=== PATIENT | female | born 1985 | race Caucasian/White ===

== ENCOUNTER 2018-11-22 18:55 | Outpatient (CLI) | payer MEDICAID ==
[~2018-11-22] VITALS: Ht 160 cm; Wt 95.0 kg
[~2018-11-22 18:55] MED LIST: ACID1TAB7 PO; CLIN300C8 PO; OXYC1TAB7 PO
[2018-11-22 20:48] LABS: MICROSCOPIC INDICATED
[2018-11-22 21:39] LABS: AMPHETAMINE SCREEN, URINE Positive (Negative); BARBITURATE SCREEN, URINE Negative (Negative); BENZODIAZEPINE SCREEN, URINE Negative (Negative); CANNABINOID SCREEN, URINE Negative (Negative); COCAINE SCREEN, URINE Negative (Negative); METHADONE SCREEN, URINE Negative (Negative); OPIATE SCREEN, URINE Negative (Negative)
== END 2018-11-22 20:50 | disposition home or self-care (01) ==
LOC: LDOP 18:55
PROVIDERS: ATTEND Obstetrics & Gynecology
DX: O62.8 Other abnormalities of forces of labor (principal); Z3A.33 33 weeks gestation of pregnancy
CPT/HCPCS: 59025; 76805; 80307; 81001; 87086; 99201; G0463

== ENCOUNTER 2019-10-29 14:24 | Emergency (ER) | payer MEDICAID ==
[~2019-10-29] VITALS: Ht 157.5 cm; Wt 96.6 kg
[2019-10-29 14:40] VITALS: BP 155/112
--- NOTE | 2019-10-29 15:20 | NUR ---
BREAK RN: PT FULLY DRESSED WHEN I ENTERED ROOM. STATED "I DON'T WANT TO WAIT, I'LL DEAL WITH THIS ANOTHER TIME" PT REFUSED TO SIGN AMA FORM AND STATED I JUST WANT TO LEAVE. PT AMBULATORY UPRIGHT STEADY GAIT.
== END 2019-10-29 15:43 | disposition left against medical advice (07) ==
LOC: ED 15:35
DX: L02.414 Cutaneous abscess of left upper limb (principal); Z53.21 Procedure and treatment not carried out due to patient leaving prior to being seen by health care provider

== ENCOUNTER 2019-10-30 14:24 | Emergency (ER) | payer MEDICAID ==
[~2019-10-30] VITALS: Ht 157.5 cm; Wt 98.0 kg
[2019-10-30 14:28] VITALS: BP 175/131
--- NOTE | 2019-10-30 15:15 | NUR ---
N/A [id number], NA [id number]
== END 2019-10-30 15:59 | disposition left against medical advice (07) ==
LOC: ED 15:53
DX: L02.414 Cutaneous abscess of left upper limb (principal); Z53.21 Procedure and treatment not carried out due to patient leaving prior to being seen by health care provider